=== PATIENT | female | born 1960 | race Caucasian/White ===

== ENCOUNTER 2022-05-28 18:24 | Inpatient (IN) | payer MEDICARE, OTHER ==
[~2022-05-28] VITALS: Ht 162.6 cm; Wt 54.9 kg
--- NOTE | 2022-05-28 18:36 | NUR ---
PT IS IN ROOM #3. DR ALFARO EVALUATED THE PT.
[2022-05-28] MEDS ORDERED: LORA-258 PO (18:47)
[2022-05-28] MEDS ORDERED: SUMA50TA PO (18:47)
[2022-05-28] MEDS ORDERED: DOXE50CA4 PO (18:47)
[2022-05-28] MEDS ORDERED: OLAN5TAB3 PO (18:47)
[2022-05-28] MEDS ORDERED: DIPH25CA83 PO (18:47)
[2022-05-28] MEDS ORDERED: MECL-225 PO (18:47)
[2022-05-28] MEDS ORDERED: LAMO150T2 PO (18:47)
[2022-05-28] MEDS ORDERED: BUSP15TA3 PO (18:47)
--- NOTE | 2022-05-28 18:50 | NUR ---
Received report from BHAVANI Harrison.
--- NOTE | 2022-05-28 19:45 | NUR ---
Called [facility] to give report. Told to call back in 15 MIN.
[2022-05-28 20:00] VITALS: BP 136/61
--- NOTE | 2022-05-28 20:10 | NUR ---
Report given to BHAVANI Calderón.
--- NOTE | 2022-05-28 20:50 | NUR ---
Pt. admitted to [facility] rm 140a, under care of Dr. De La Rosa/Dr. Yi Belongs List completed BHAVANI Calderón aware of patient's arrival to unit.
[2022-05-28] MEDS ORDERED: MAG HYDROX/AL HYDROX/SIMETH 30 ML LIQUID UDC PO PRN (21:15)
[2022-05-28] MEDS ORDERED: MAGNESIUM HYDROXIDE 30 ML LIQUID UDC PO PRN (21:15)
[2022-05-28] MEDS ORDERED: ACETAMINOPHEN 325 MG TABLET PO PRN (21:15)
[2022-05-28] MEDS: TEMAZEPAM 7.5 MG CAPSULE PO PRN (23:41)
--- NOTE | 2022-05-29 02:56 | NUR ---
Admission Notes: Received 61 y/o female patient @ 2315 hours, on a 5150 hold d/t being GD and a DTS. Pt was BIB ER staff via lindsay. Upon face to face assessment, pt was AOx1, confused, disorganized, disoriented, extremely anxious, easily irritable, argumentative, disheveled, labile with catatonic affect. Patient continued to scream as loud as she could "I need to have it quiet!" "It needs to be quiet!" "Are you telling me I can't ever have it quiet?" "Oh no, I can't take this!" "I won't be able to take this!" In-between each scream would be an over-exaggeration of a cry. Back and forth she went on being non-compliant, and with selective hearing, we/this staff managed to re-direct the patient to calm down and follow directions. Patient stated she still had thoughts of SI, but denied HI, and was contracted for safety with this nurse. Pt was given her advisement and patient's handbook at her bedside. Pt has an unsteady gait and is ambulatory x1 moderate to maximum assist. She is incontinent. Patient's history was that she was found [place] the ground, on a fire road[place]running trail by a runner passing by as she heard the patient's screams for help. Pt told the runner that she felt like she was having a stroke, but actually she overdosed. Per mother statement, she called the police that her daughter was missing, and that she believes her daughter attempted to commit suicide via swallowing a lot of Benadryl's. Pt has a history of failed suicide attempts, depression, and anxiety. Estrella's the psychiatrist and Jessica's the financial institution treasurer. Addendum: 05/29/22 at 0342 by RHONA GONZALEZ LVN Patient came onto U with noted slight ecchymosis onto her lower back/lumbar region. Upon palpation, pt claimed the area to be somewhat tender.
[2022-05-29 08:11] VITALS: BP 123/67
[2022-05-29] MEDS: LITHIUM CARBONATE 150 MG CAPSULE PO SCH ×2 (12:43→21:30)
[2022-05-29] MEDS: BENZTROPINE MESYLATE 0.5 MG TABLET PO SCH ×2 (12:43→16:25)
[2022-05-29] MEDS: risperiDONE-M 0.5 MG TAB.RAPDIS PO SCH ×2 (12:44→16:24)
--- NOTE | 2022-05-29 14:16 | NUR ---
Received patient alert and orient x 1 to her self confused and disoriented. able to ambulates with unsteady gait.patient is paranoia and delusional believe she is in her own room at her house. refused to attend in group activity ,compliant with all medication .with episode of saying " i want to kill my self" Dr. De La Rosa aware of patient express of suicidal ideation, will close monitoring for safety and SI precaution
[2022-05-29 15:29] VITALS: BP 95/50
[2022-05-29 19:58] VITALS: BP 96/52
[2022-05-29] MEDS ORDERED: SUMATRIPTAN SUCCINATE 50 MG TABLET PO PRN (20:15)
[2022-05-29] MEDS: TEMAZEPAM 7.5 MG CAPSULE PO PRN (21:30)
--- NOTE | 2022-05-30 07:29 | NUR ---
Patient is well appropriate, calm and cooperative. She is complaint with meds. No behavior issues observed.
[2022-05-30 07:59] VITALS: BP 101/52
[2022-05-30 08:17] LABS: HEMATOCRIT 35.9 % (31.2-41.9); MEAN CORPUSCULAR HEMOGLOBIN 30.7 uug (24.7-32.8); MEAN CORPUSCULAR VOLUME 91.4 fL (75.5-95.3); PLATELET COUNT (AUTO) 116 K/uL (179-408)
[2022-05-30 08:43] LABS: THYROID STIMULATING HORMONE 3.037 mIU/mL (0.358-3.740)
[2022-05-30 09:02] LABS: BILIRUBIN,TOTAL 0.4 mg/dL (0.2-1.0); CREATININE 0.7 mg/dL (0.6-1.3); MAGNESIUM 2.3 mg/dL (1.8-2.4); PHOSPHOROUS 3.9 mg/dL (2.5-4.9); POTASSIUM 3.8 mmol/L (3.5-5.1); TOTAL PROTEIN, SERUM 6.4 g/dL (6.4-8.2)
[2022-05-30] MEDS: risperiDONE-M 0.5 MG TAB.RAPDIS PO SCH ×3 (11:01→18:15)
[2022-05-30] MEDS: LITHIUM CARBONATE 150 MG CAPSULE PO SCH ×2 (11:02→18:15)
[2022-05-30] MEDS: BENZTROPINE MESYLATE 0.5 MG TABLET PO SCH ×3 (11:02→18:15)
--- NOTE | 2022-05-30 13:15 | NUR ---
LUIS Family Contact: SW spoke with pt's mother, Franchesca ([phone]) and pt in person regarding pt's discharge plan. Pt discussed that she is feeling a little better and she slept well. SW discussed pt's discharge options to a assisted facility upon discharge and pt and her mother stated they will talk about it and inform this fiction writer.
[2022-05-30 15:01] VITALS: BP 97/64
--- NOTE | 2022-05-30 16:22 | NUR ---
LUIS Initial Discharge Note: Pt currently resides in a moblile home with a roommate at [address] [facility], [facility] [address] . Pt is in close contact with her mother, Franchesca ([phone]). Pt does not have a DPOA. Pt is open to further discussing a temporary fdc facility. LUIS will continue to work with pt, her mother and MD to ensure a safe adn proper discharge plan.
--- NOTE | 2022-05-30 16:26 | NUR ---
Firearms Report: Developer Relations Manager completed and submitted a DOJ firearms report for 5150 a danger to herself and grave disability certifications. A copy of report has been placed in patient chart.
[2022-05-30 20:05] VITALS: BP 104/54
[2022-05-30] MEDS: ATORVASTATIN 10 MG TABLET PO SCH (20:34)
[2022-05-30] MEDS: TEMAZEPAM 7.5 MG CAPSULE PO PRN (21:50)
--- NOTE | 2022-05-31 06:23 | NUR ---
Received patient interacting with other peers, ambulating in the hallway, A&0x2. Able to make needs known. Med compliant. She is forgetful and confused at times. Snacks and fluid provided w/ good appetite. She is anxious, looking for her hearing aid, states that one of the patient are taking her things. Patient states that the hearing aids were in a green case and was brought by her mother earlier when she visits. Melt Superintendant didn't find the missing item. Patient unable to sleep. temazepam given. She is sleeping intermittently this shift. All safety strategies in placed.
[2022-05-31 08:00] VITALS: BP 105/56
[2022-05-31] MEDS: BENZTROPINE MESYLATE 0.5 MG TABLET PO SCH ×3 (08:28→17:05)
[2022-05-31] MEDS: LITHIUM CARBONATE 150 MG CAPSULE PO SCH ×2 (08:28→17:05)
[2022-05-31] MEDS: risperiDONE-M 0.5 MG TAB.RAPDIS PO SCH ×4 (08:28→20:47)
--- NOTE | 2022-05-31 13:34 | NUR ---
Patient had court hearing today, youth court judge gave 14 Day hold probable cause for DTS and GD.
--- NOTE | 2022-05-31 14:04 | NUR ---
SW Family Contact: SW spoke with pt's mother, Franchesca ([phone]) and pt in person regarding pt's discharge plan. Pt and mother are agreeable with a temporary facility upon discharge. Pt and Franchesca were very appreciative of SW's help. Pt stated she feels better and happy with the psychiatrists treatment.
--- NOTE | 2022-05-31 14:24 | NUR ---
Patient pacing in and out of her room, ambulating with steady gait, patient stated she needs to go to the bathroom, but is unable to pull her pants down to use the bathroom due to she does not know how, poor insight. Patient needs guidance on participating with self-care. Patient is medication compliance, follows directions. Patient is current free from pain or any discomforts, emotional support provided, fall and safety precautions implemented.
[2022-05-31 16:00] VITALS: BP 99/48
[2022-05-31] MEDS: ATORVASTATIN 10 MG TABLET PO SCH (20:45)
[2022-05-31] MEDS: TEMAZEPAM 7.5 MG CAPSULE PO PRN (20:45)
[2022-05-31 21:21] VITALS: BP 122/65
--- NOTE | 2022-06-01 07:15 | NUR ---
Patient is doing much better, she interact politely with staff, denied SI/AH/VH. She is compliant with meds; she slept all night. No S/S of respiratory distress observed. Will continue to monitor patient for safety.
[2022-06-01 07:39] VITALS: BP 103/56
[2022-06-01] MEDS: BENZTROPINE MESYLATE 0.5 MG TABLET PO SCH ×3 (08:29→16:31)
[2022-06-01] MEDS: risperiDONE-M 0.5 MG TAB.RAPDIS PO SCH ×4 (08:29→20:31)
[2022-06-01] MEDS: LITHIUM CARBONATE 150 MG CAPSULE PO SCH ×2 (08:29→16:32)
--- NOTE | 2022-06-01 10:52 | NUR ---
LUIS Family Contact: LUIS spoke with pt's mother, Franchesca ([phone]) regarding visitation protocols. LUIS educated Franchesca the importance of checking in her belongings that she brings for the pt with nursing first. LUIS stated it is for patient safety that any item brought for the patient is first cleared by the nurse prior to entering the pt's room. LUIS stated that failure to comply with the hospital protocols will result in no visitation per administration. Franchesca stated she understands and she apologized for the incident yesterday.
--- NOTE | 2022-06-01 11:58 | NUR ---
Discharge Update: Per luiza cruz, pt is accepted to [address] [address] ([phone]) upon discharge. Pt is aware and agreeable with the discharge plan.
--- NOTE | 2022-06-01 14:53 | NUR ---
Patient with flat affect, withdraw, isolative, soft spoke, denies SI, HI, VH,AH, medication compliant, up in day room during visits from her mother, encouraging patient to participate with groups and daily activities. Patient is currently free from pain or any discomfort. Emotional support provided. Fall and safety precautions implemented. Patient contracted for safety.
[2022-06-01 15:42] VITALS: BP 122/67
[2022-06-01] MEDS: ATORVASTATIN 10 MG TABLET PO SCH (20:31)
[2022-06-01 20:54] VITALS: BP 110/62
--- NOTE | 2022-06-02 06:53 | NUR ---
Received pt in room pacing anxious with flat affect, withdraw, isolative, Pt denies SI, HI, verbal contracted with this screen writer for safety.Pt is medication compliant. Emotional support provided.Pt had a snack and watched TV before going to sleep. Pt slept for 6hrs and 30min No distress noted. Continue to monitor for safety, continue with treatment plan.
[2022-06-02 07:54] VITALS: BP 110/60
[2022-06-02] MEDS: LITHIUM CARBONATE 150 MG CAPSULE PO SCH ×2 (08:44→16:59)
[2022-06-02] MEDS: BENZTROPINE MESYLATE 0.5 MG TABLET PO SCH ×3 (08:44→16:59)
[2022-06-02] MEDS: risperiDONE-M 0.5 MG TAB.RAPDIS PO SCH ×4 (08:44→21:03)
[2022-06-02] MEDS: PROTEIN SUPPLEMENT (PROSTAT) 30 ML LIQUID PO SCH (10:15)
--- NOTE | 2022-06-02 15:27 | NUR ---
Received patient alert and orient x 1 to her self confused and disoriented. able to ambulates with unsteady gait.patient is paranoia and delusional believe she is in her own room at her house. refused to attend in group activity ,compliant with all medication,denies any SI .remains isolative withdrawn will continue close monitoring.
[2022-06-02 18:12] VITALS: BP 96/56
[2022-06-02] MEDS: LORAZEPAM 1 MG TABLET PO PRN (21:03)
[2022-06-02] MEDS: ATORVASTATIN 10 MG TABLET PO SCH (21:03)
[2022-06-02 21:08] VITALS: BP 122/63
[2022-06-03 08:18] VITALS: BP 99/60
[2022-06-03] MEDS: LITHIUM CARBONATE 150 MG CAPSULE PO SCH ×2 (08:43→17:19)
[2022-06-03] MEDS: BENZTROPINE MESYLATE 0.5 MG TABLET PO SCH ×3 (08:43→17:19)
[2022-06-03] MEDS: risperiDONE-M 0.5 MG TAB.RAPDIS PO SCH ×4 (08:43→20:32)
[2022-06-03] MEDS: PROTEIN SUPPLEMENT (PROSTAT) 30 ML LIQUID PO SCH (08:44)
[2022-06-03 16:29] VITALS: BP 112/67
[2022-06-03] MEDS ORDERED: MISCELLANEOUS MED EACHEYE SCH (17:00)
[2022-06-03] MEDS: DORZOLAMIDE 2% OPHT DROP 10 ML BOTTLE OP SCH (17:20)
[2022-06-03] MEDS: TIMOLOL MALEATE 0.5% OPHT DROP 5 ML BOTTLE OP SCH (17:26)
--- NOTE | 2022-06-03 18:08 | NUR ---
Patient is very dependent, always requiring help from staff and especially her mother when she is visiting, mother is very protective and needs to be reminded of unit rules, compliant with medications, isolative, depressed. Patient is A/O X 3 to person, place. Booth Operator was informed that patient had Glaucoma drops from home to be reconciled, orders were placed. Emotional support provided. Fall and safety precautions implemented.
[2022-06-03 20:23] VITALS: BP 101/56
[2022-06-03] MEDS: LORAZEPAM 1 MG TABLET PO PRN (20:31)
[2022-06-03] MEDS: ATORVASTATIN 10 MG TABLET PO SCH (20:31)
--- NOTE | 2022-06-04 06:58 | NUR ---
Patient remains withdrawn and isolated for entire shift. Compliant with medications, she requires that her medications are taken one at a time. Anxious but compliant. Patient safety strategies in place.
[2022-06-04 07:59] VITALS: BP 124/77
[2022-06-04] MEDS: PROTEIN SUPPLEMENT (PROSTAT) 30 ML LIQUID PO SCH (08:00)
[2022-06-04] MEDS: BENZTROPINE MESYLATE 0.5 MG TABLET PO SCH ×2 (09:35→12:05)
[2022-06-04] MEDS: LITHIUM CARBONATE 150 MG CAPSULE PO SCH ×2 (09:35→17:23)
[2022-06-04] MEDS: risperiDONE-M 0.5 MG TAB.RAPDIS PO SCH ×4 (09:36→20:12)
[2022-06-04] MEDS: TIMOLOL MALEATE 0.5% OPHT DROP 5 ML BOTTLE OP SCH ×2 (09:38→17:25)
[2022-06-04] MEDS: DORZOLAMIDE 2% OPHT DROP 10 ML BOTTLE OP SCH ×2 (09:38→17:25)
--- NOTE | 2022-06-04 12:27 | NUR ---
RECEIVED REPORT FROM AM NURSE RHONA PT IS ALERT AND ORIENTED X 2 PT DENIES SI BUT IS COMPLIANT WITH MEDICATION AND NO SIGNS OF ADVERSE REACTION FROM MEDICATIONS. PT IS ON A 14 DAY HOLD WHICH EXPIRES 06/12/22. PT IS AMBULATORY. PT IS SELF CARE AND NOT A FEEDER.
[2022-06-04] MEDS ORDERED: BENZTROPINE MESYLATE 0.5 MG TABLET PO SCH (13:00)
[2022-06-04 16:30] VITALS: BP 98/51
[2022-06-04] MEDS: BENZTROPINE MESYLATE 1 MG TABLET PO SCH (17:23)
[2022-06-04 19:50] VITALS: BP 111/60
[2022-06-04] MEDS: ATORVASTATIN 10 MG TABLET PO SCH (20:12)
--- NOTE | 2022-06-04 20:38 | NUR ---
GPS: Less anxious at this time. Re-assured prn. Med.compliant. Poor insight to present situation. Safe environment provided.
[2022-06-04] MEDS: TEMAZEPAM 7.5 MG CAPSULE PO PRN (23:27)
[2022-06-05 07:46] LABS: HEMATOCRIT 33.1 % (31.2-41.9); MEAN CORPUSCULAR HEMOGLOBIN 30.9 uug (24.7-32.8); MEAN CORPUSCULAR VOLUME 91.2 fL (75.5-95.3); PLATELET COUNT (AUTO) 118 K/uL (179-408)
[2022-06-05 08:00] VITALS: BP 112/52
[2022-06-05 08:02] LABS: BILIRUBIN,TOTAL 0.4 mg/dL (0.2-1.0); CREATININE 0.6 mg/dL (0.6-1.3); POTASSIUM 3.8 mmol/L (3.5-5.1); TOTAL PROTEIN, SERUM 5.7 g/dL (6.4-8.2)
[2022-06-05] MEDS: risperiDONE-M 0.5 MG TAB.RAPDIS PO SCH ×4 (08:37→20:14)
[2022-06-05] MEDS: BENZTROPINE MESYLATE 1 MG TABLET PO SCH ×3 (08:38→16:36)
[2022-06-05] MEDS: LITHIUM CARBONATE 150 MG CAPSULE PO SCH ×2 (08:38→16:35)
[2022-06-05] MEDS: TIMOLOL MALEATE 0.5% OPHT DROP 5 ML BOTTLE OP SCH ×2 (08:39→16:46)
[2022-06-05] MEDS: PROTEIN SUPPLEMENT (PROSTAT) 30 ML LIQUID PO SCH (08:39)
[2022-06-05] MEDS: DORZOLAMIDE 2% OPHT DROP 10 ML BOTTLE OP SCH ×2 (08:41→16:37)
--- NOTE | 2022-06-05 14:34 | NUR ---
Patient is cooperative with nursing care, follows directions, forgetful, confused at times, requires minimal assistance with ADL, isolative most of the time. Patient is A/O X 2 to person, place. Patient's mother comes very often, and seems very confused with belongings and bags, recently following the rules in the unit. Patient ambulates independently. Patient is encourage to vent feelings and emotions. Fall and safety precautions implemented.
[2022-06-05 16:29] VITALS: BP 93/52
[2022-06-05 19:58] VITALS: BP 101/53
[2022-06-05] MEDS: ATORVASTATIN 10 MG TABLET PO SCH (20:14)
[2022-06-05] MEDS: TEMAZEPAM 7.5 MG CAPSULE PO PRN (21:44)
--- NOTE | 2022-06-06 06:52 | NUR ---
GPS: Pt.is less anxious and denies feeling depressed when asked. Re-assured and re-directed prn. Med.compliant and allows care from staff. Slept 7.30 last night. Safety emphasized. Will continue to monitor.
[2022-06-06 08:00] VITALS: BP 104/53
[2022-06-06] MEDS: LITHIUM CARBONATE 150 MG CAPSULE PO SCH ×2 (08:21→16:55)
[2022-06-06] MEDS: risperiDONE-M 0.5 MG TAB.RAPDIS PO SCH ×4 (08:21→20:23)
[2022-06-06] MEDS: TIMOLOL MALEATE 0.5% OPHT DROP 5 ML BOTTLE OP SCH ×2 (08:22→16:54)
[2022-06-06] MEDS: DORZOLAMIDE 2% OPHT DROP 10 ML BOTTLE OP SCH ×2 (08:22→16:55)
[2022-06-06] MEDS: PROTEIN SUPPLEMENT (PROSTAT) 30 ML LIQUID PO SCH (08:22)
[2022-06-06] MEDS: BENZTROPINE MESYLATE 1 MG TABLET PO SCH (08:25)
--- NOTE | 2022-06-06 10:29 | NUR ---
Patient is walking in and out of her room patient focus on medications she is taking, patient is more verbal, "I just need the new medication that I started 72 hour ago, I am forgetful and I think is the medication that is making me forge'. Redirected patient , reassured patient that she is doing better, notice patient thoughts process is more clear, patient takes all medications as ordered, Patient is currently free form pain or discomforts, Emotional support provided, Fall and safety precautions implemented.
[2022-06-06] MEDS: LORAZEPAM 1 MG TABLET PO PRN ×2 (11:15→20:23)
--- NOTE | 2022-06-06 11:18 | NUR ---
Ativan 1 mg is given at 11:15 for anxiety, will be monitored for effectiveness. Patient is paranoid and states "You guys blocked my primary Psychiatrist number, and now I can't have any help. I need Ativan because it's giving me anxiety".
--- NOTE | 2022-06-06 12:18 | NUR ---
SW Family Contact: SW spoke with pt's mother Franchesca ([phone]) regarding pt's acceptance to [facility] located at [address] [place] [address] ([phone]). Franchesca was grateful and appreciative of this SW's help. Pt is as also aware and agreeable with her discharge plan.
[2022-06-06 16:07] VITALS: BP 101/58
[2022-06-06 20:03] VITALS: BP 111/64
[2022-06-06] MEDS: AMANTADINE HCL 100 MG CAPSULE PO SCH (20:23)
[2022-06-06] MEDS: ATORVASTATIN 10 MG TABLET PO SCH (20:23)
--- NOTE | 2022-06-07 00:24 | NUR ---
Received patient in [facility] delusionally paranoid. Pt believed that the hospital staff blocked her mother's and psychiatrist's telephone number. After spending roughly 20 minutes providing repeated assurance and education, pt continued to believe in her delusional thoughts. Patient eventually stated she is "starting to feel suicidal" because her mother didn't visit her today, nor did she call her. This nurse added Ativan to her 2100 hour medication regimen to help calm her down. Medications were effective. Will continue to monitor.
[2022-06-07 08:11] VITALS: BP 92/51
--- NOTE | 2022-06-07 08:24 | NUR ---
Clinical SW Note: Pt appears paranoid this morning stating she can no longer contact her mother because the FBI took over her mother's cellphone and that her mother did not visit yesterday. SW reminded pt that her mother was able to visit and this SW, the pt and her mother Franchesca ([phone]) spoke yesterday about her discharge plan in person. Pt appeared relieved and stated she is aware her memory is back and forth and she appeared more relaxed knowing she and her mother are safe.
[2022-06-07] MEDS: LITHIUM CARBONATE 150 MG CAPSULE PO SCH ×2 (08:37→17:02)
[2022-06-07] MEDS: AMANTADINE HCL 100 MG CAPSULE PO SCH ×2 (08:37→20:27)
[2022-06-07] MEDS: risperiDONE-M 0.5 MG TAB.RAPDIS PO SCH ×4 (08:38→20:27)
[2022-06-07] MEDS: DORZOLAMIDE 2% OPHT DROP 10 ML BOTTLE OP SCH ×2 (08:38→17:03)
[2022-06-07] MEDS: PROTEIN SUPPLEMENT (PROSTAT) 30 ML LIQUID PO SCH (08:38)
[2022-06-07] MEDS: TIMOLOL MALEATE 0.5% OPHT DROP 5 ML BOTTLE OP SCH ×2 (08:51→17:03)
--- NOTE | 2022-06-07 15:30 | NUR ---
Patient is being paranoid about telephone being blocked by us and for her not being able to talk to her primary Psychiatrist and her Mom, even though Mom was contacted right away in the same phone. Patient is unable to provide self care, requires redirection and prompts. Patient is confused and anxious at times. Patient is compliant with medications, and cooperative with nursing care. Patient is A/O X 2 to person, place. Reality orientation provided. Fall and safety precautions implemented.
[2022-06-07 15:44] VITALS: BP 88/41
[2022-06-07 19:01] VITALS: BP 89/51
[2022-06-07] MEDS: ATORVASTATIN 10 MG TABLET PO SCH (20:27)
[2022-06-07 21:11] VITALS: BP 91/50
--- NOTE | 2022-06-07 21:22 | NUR ---
GPS: Pt.was anxious during start of shift. Re-assured prn. Has periods of confusion and is forgetful at times. Denies AH/VH and SI at this time. Safe environment provided. Needs attended. Now resting comfortably in bed with her eyes closed. Will continue to monitor. Med.compliant.
[2022-06-07 21:45] VITALS: BP 92/57
[2022-06-08] MEDS: TEMAZEPAM 7.5 MG CAPSULE PO PRN (00:11)
[2022-06-08 07:09] VITALS: BP 95/54
[2022-06-08] MEDS: AMANTADINE HCL 100 MG CAPSULE PO SCH ×2 (08:33→20:59)
[2022-06-08] MEDS: risperiDONE-M 0.5 MG TAB.RAPDIS PO SCH (08:33)
[2022-06-08] MEDS: LITHIUM CARBONATE 150 MG CAPSULE PO SCH ×2 (08:33→17:13)
[2022-06-08] MEDS: TIMOLOL MALEATE 0.5% OPHT DROP 5 ML BOTTLE OP SCH ×2 (08:34→17:14)
[2022-06-08] MEDS: PROTEIN SUPPLEMENT (PROSTAT) 30 ML LIQUID PO SCH (08:34)
[2022-06-08] MEDS: DORZOLAMIDE 2% OPHT DROP 10 ML BOTTLE OP SCH ×2 (08:34→17:14)
--- NOTE | 2022-06-08 15:08 | NUR ---
Patient is confused, forgetful, needy, still paranoid about not being able to make calls, compliant with medications, following directions. Patient is encourage to vent feelings and emotions. Fall and safety precautions implemented.
[2022-06-08 16:30] VITALS: BP 92/53
[2022-06-08 20:24] VITALS: BP 90/47
[2022-06-08] MEDS: ATORVASTATIN 10 MG TABLET PO SCH (20:59)
[2022-06-08] MEDS ORDERED: OLANZAPINE 5 MG TABLET PO SCH (21:00)
[2022-06-08] MEDS: LORAZEPAM 1 MG TABLET PO PRN (23:17)
--- NOTE | 2022-06-09 04:49 | NUR ---
Received Pt in room pacing.Pt is anxious,Restless and depressed. Pt ca not formulate a bailable plan for care. Pt is compliant with medication and nursing care.Pt denies SI/HI. Verbal contracted with this writer producer for safety. Pt ask for anxiety medication. Pt stated "I feel anxious and scared for my current situation, the reason I am here." "I was being stalked and hacked by people from the internet". " I had to change all my devices But that was not good enough, Do I need to get rid of all my devices and hide?". Reassurance provided . Pt took Ativan and went to sleep.Pt is calmly sleeping. No distress noted. Continue to monitor for safety .Continue to with treatment plan.
[2022-06-09 08:08] VITALS: BP 106/64
[2022-06-09] MEDS: AMANTADINE HCL 100 MG CAPSULE PO SCH ×2 (08:22→20:23)
[2022-06-09] MEDS: LITHIUM CARBONATE 150 MG CAPSULE PO SCH ×2 (08:22→16:33)
[2022-06-09] MEDS: TIMOLOL MALEATE 0.5% OPHT DROP 5 ML BOTTLE OP SCH ×2 (08:23→16:32)
[2022-06-09] MEDS: DORZOLAMIDE 2% OPHT DROP 10 ML BOTTLE OP SCH ×2 (08:23→16:32)
[2022-06-09] MEDS: PROTEIN SUPPLEMENT (PROSTAT) 30 ML LIQUID PO SCH (08:24)
--- NOTE | 2022-06-09 08:30 | NUR ---
Alert, oriented x 3, calm, compliant with care and taking of medication. Independent with meal and ADL. Denies SI.
--- NOTE | 2022-06-09 13:40 | NUR ---
Eating fairly. Resting after lunch.
--- NOTE | 2022-06-09 15:30 | NUR ---
With mother as visitor. screening of belongings done, stayed at the activity room
[2022-06-09 16:00] VITALS: BP 107/61
[2022-06-09 20:05] VITALS: BP 95/54
[2022-06-09] MEDS: ATORVASTATIN 10 MG TABLET PO SCH (20:22)
[2022-06-09] MEDS: OLANZAPINE 5 MG TABLET PO SCH (20:22)
--- NOTE | 2022-06-10 05:57 | NUR ---
Received Pt in room awake, withdrawn, depressed. Pt is still paranoid about being cyber hacked. Pt ca not formulate a bailable plan for care. Pt is compliant with medication and nursing care. Pt denies SI/HI. Verbal contracted with this chart writer for safety. Pt ask for anxiety medication. Reassurance provided. Pt is calmly sleeping. No distress noted. Continue to monitor for safety .Continue to with treatment plan.
[2022-06-10 08:10] VITALS: BP 94/46
[2022-06-10] MEDS: LITHIUM CARBONATE 150 MG CAPSULE PO SCH ×2 (08:15→17:17)
[2022-06-10] MEDS: DORZOLAMIDE 2% OPHT DROP 10 ML BOTTLE OP SCH ×2 (08:15→17:17)
[2022-06-10] MEDS: TIMOLOL MALEATE 0.5% OPHT DROP 5 ML BOTTLE OP SCH ×2 (08:15→17:17)
[2022-06-10] MEDS: AMANTADINE HCL 100 MG CAPSULE PO SCH ×2 (08:15→20:41)
[2022-06-10] MEDS: PROTEIN SUPPLEMENT (PROSTAT) 30 ML LIQUID PO SCH (08:16)
--- NOTE | 2022-06-10 14:37 | NUR ---
Patient is very needy, confused, preoccupied, anxious, isolated, paranoid about being cyber hacked. Patient is A/O X 2 to person, place. Patient ambulates independently. Reality orientation provided. Fall and safety precautions implemented.
[2022-06-10 16:13] VITALS: BP 108/60
[2022-06-10 19:57] VITALS: BP 112/52
[2022-06-10] MEDS: LORAZEPAM 1 MG TABLET PO PRN (20:41)
[2022-06-10] MEDS: OLANZAPINE 5 MG TABLET PO SCH (20:41)
[2022-06-10] MEDS: ATORVASTATIN 10 MG TABLET PO SCH (20:41)
--- NOTE | 2022-06-11 00:16 | NUR ---
Patient requested Ativan to help calm her down because she stated she is feeling suicidal. Although Ativan is effective for this purpose, I believe she is becoming dependant on the medication as soon as she becomes even slightly a bit anxious. Safety measures taken. Will continue to monitor.
[2022-06-11] MEDS: PROTEIN SUPPLEMENT (PROSTAT) 30 ML LIQUID PO SCH (08:00)
[2022-06-11 08:05] LABS: HEMATOCRIT 32.5 % (31.2-41.9); MEAN CORPUSCULAR HEMOGLOBIN 30.6 uug (24.7-32.8); MEAN CORPUSCULAR VOLUME 92.3 fL (75.5-95.3); PLATELET COUNT (AUTO) 124 K/uL (179-408)
[2022-06-11 08:16] VITALS: BP 109/67
[2022-06-11 08:21] LABS: BILIRUBIN,TOTAL 0.4 mg/dL (0.2-1.0); CREATININE 0.8 mg/dL (0.6-1.3); POTASSIUM 3.5 mmol/L (3.5-5.1); TOTAL PROTEIN, SERUM 5.8 g/dL (6.4-8.2)
[2022-06-11] MEDS: LITHIUM CARBONATE 150 MG CAPSULE PO SCH ×2 (09:00→17:01)
[2022-06-11] MEDS: TIMOLOL MALEATE 0.5% OPHT DROP 5 ML BOTTLE OP SCH ×2 (09:00→17:00)
[2022-06-11] MEDS: DORZOLAMIDE 2% OPHT DROP 10 ML BOTTLE OP SCH ×2 (09:00→17:00)
[2022-06-11] MEDS: AMANTADINE HCL 100 MG CAPSULE PO SCH ×2 (09:00→20:35)
--- NOTE | 2022-06-11 13:38 | NUR ---
RECEIVED CALLED FROM ANDREY PRESIDENT PRACTICING UROLOGIST HAVE PT TRANSFER TO TELE UNIT DX VASCULITIS, ID CONSULT, AND MRI WITHOUT CONTRAST. ORDERS DONE WAITING ON BED FOR TELE. ALSO WANTS PT REAL BEAR TRANSFER TO MEDICAL SURGICAL FLOOR AND D/C TRANSFER BACK TO [facility].
--- NOTE | 2022-06-11 13:55 | NUR ---
REPORT GIVEN TO AM HOMER NURSE ON TELE UNIT FOR PATIENT TRANSFER
--- NOTE | 2022-06-11 15:31 | NUR ---
LUIS Discharge Screener: LUIS completed a discharge screener.
--- NOTE | 2022-06-11 15:42 | NUR ---
LUIS TRANSFER NOTE: Pt is accepted to [facility] upon discharge located at [address] [place] [address] ([phone]) confirmed by Breanne cruz [phone]. LUIS spoke with pt's mother, Franchesca ([phone]) who is aware and agreeable with the discharge plan. Pt does not have a DPOA or conservator.
[2022-06-11 16:45] VITALS: BP 110/69
--- NOTE | 2022-06-11 18:59 | NUR ---
SHIFT NOTE: RECEIVED REPORT FROM HS NURSE RHONA PT ALERT AND ORIENTED X4 ENTERED PATIENT ROOM LYING ON BED. DR. RETANA ORDERED MRI WITHOUT CONTRAST. AFTERWARDS PT BROUGHT BACK TO MHU. NO SIGNS OF DISTRESS NOTED. RADHA BALDERAS NP ORDERED PATIENT TO BE TAKEN TO UPSTAIRS TO TELEMETRY. PT MEDICATION GIVEN ORDERED NO SIGNS OF ADVERSE REACTION NOTED. WILL CONTINUE TO MONITOR FOR SAFETY AND FALLS ENDORSE TO NIGHT NURSE.
[2022-06-11] MEDS: OLANZAPINE 5 MG TABLET PO SCH (20:35)
[2022-06-11] MEDS: LORAZEPAM 1 MG TABLET PO PRN (20:35)
[2022-06-11] MEDS: ATORVASTATIN 10 MG TABLET PO SCH (20:35)
[2022-06-11] MEDS ORDERED: GADOTERATE MEGLUMINE 5 MMOL/10 ML VIAL IV ONE (20:39)
== END 2022-06-11 20:40 | DRG 885 ==
LOC: ER 18:31 → GPS 20:35
PROVIDERS: ADMIT Psychiatry & Neurology Psychosomatic Medicine; ATTEND Internal Medicine
DX: F25.0 Schizoaffective disorder, bipolar type (principal); R45.851 Suicidal ideations; E78.5 Hyperlipidemia, unspecified; F32.A Depression, unspecified; F43.10 Post-traumatic stress disorder, unspecified; F60.9 Personality disorder, unspecified; R62.7 Adult failure to thrive; J45.909 Unspecified asthma, uncomplicated; Z87.19 Personal history of other diseases of the digestive system; I34.1 Nonrheumatic mitral (valve) prolapse; K58.9 Irritable bowel syndrome, unspecified; F41.9 Anxiety disorder, unspecified; Z68.20 Body mass index [BMI] 20.0-20.9, adult; H40.9 Unspecified glaucoma; I77.6 Arteritis, unspecified; Z85.820 Personal history of malignant melanoma of skin
CPT/HCPCS: 36415; 70030-TC; 70450; 70551; 82747; 83735; 84100; 84443; 85014; 85025; A4663; A9575

== ENCOUNTER 2022-06-11 20:41 | Inpatient (IN) | payer MEDICARE, OTHER ==
[~2022-06-11] VITALS: Ht 162.6 cm; Wt 54.4 kg
--- NOTE | 2022-06-11 15:43 | NUR ---
LUIS TRANSFER NOTE: Pt is accepted to [facility] upon discharge located at [address] [place] [address] ([phone]) confirmed by Breanne cruz [phone]. LUIS spoke with pt's mother, Franchesca ([phone]) who is aware and agreeable with the discharge plan. Pt does not have a DPOA or conservator.
[~2022-06-11 20:41] MED LIST: DIPH25CA83 PO; MECL-225 PO; SUMA50TA PO
[2022-06-11 21:00] VITALS: BP 112/69
--- NOTE | 2022-06-11 21:00 | NUR ---
Admitted patient from [facility]HU with dx of Possible vasculitis by Simon BARCENAS. Patient alert oriented, continent of bladder, ambulatory, room air, no complain of pain, patient calm and cooperative with care, Patient has 1;1 sitter due dx of SI. body check done, inventory all belongings, provide safe environment, call light and phone took out of the room. cont to monitor.
[2022-06-11] MEDS ORDERED: ACETAMINOPHEN 325 MG TABLET PO PRN (22:30)
[2022-06-11] MEDS ORDERED: ONDANSETRON 4 MG/2 ML VIAL IV PRN (22:30)
[2022-06-11] MEDS ORDERED: MAGNESIUM HYDROXIDE 30 ML LIQUID UDC PO PRN (22:30)
[2022-06-11] MEDS ORDERED: REMEDY ESSENTIAL ZINC PASTE 113 GM TP PRN (22:30)
[2022-06-11] MEDS: ENOXAPARIN SODIUM 40 MG/0.4 ML DISP.SYRIN SQ SCH (23:27)
[2022-06-12] VITALS: BP 101/60
[2022-06-12 04:00] VITALS: BP 102/59
[2022-06-12] MEDS: PANTOPRAZOLE SODIUM 40 MG TABLET.DR PO SCH (06:14)
--- NOTE | 2022-06-12 06:48 | NUR ---
Patient alert oriented, no sob no chest pain, tele monitor sinus. Patient has no complain of pain, left hand 22gauge IV helplock done. Patient continue on 1;1 sitter due SI diagnosis. cont to monitor.
[2022-06-12 07:45] VITALS: BP 99/56
[2022-06-12 08:22] LABS: HEMATOCRIT 30.1 % (31.2-41.9); MEAN CORPUSCULAR HEMOGLOBIN 31.1 uug (24.7-32.8); MEAN CORPUSCULAR VOLUME 91.2 fL (75.5-95.3); PLATELET COUNT (AUTO) 113 K/uL (179-408)
[2022-06-12 08:53] LABS: CREATININE 0.7 mg/dL (0.6-1.3); MAGNESIUM 2.1 mg/dL (1.8-2.4); PHOSPHOROUS 4.2 mg/dL (2.5-4.9); POTASSIUM 3.4 mmol/L (3.5-5.1)
--- NOTE | 2022-06-12 09:32 | NUR ---
POTASSIUM LEVEL IS 3.4 WITH REPLACEMENT ORDER AND NOTED.
[2022-06-12] MEDS ORDERED: POTASSIUM CHLORIDE 20 MEQ TAB.PRT.SR PO ONE (10:00)
--- NOTE | 2022-06-12 10:18 | NUR ---
POTASSIUM LEVEL IS 3.4 MEDICATED ORDERED WILL OBSERVE.
[2022-06-12] MEDS ORDERED: POTASSIUM BICARBONATE/CIT AC 25 MEQ TABLET.EFF PO ONE (10:30)
[2022-06-12 11:00] VITALS: BP 116/64
--- NOTE | 2022-06-12 11:30 | NUR ---
INSERTED A NEW LINE GAUGE 20 TO HER RIGHT ANTECUBITAL IN PREP FOR MRI WITH CONTRAST.
--- NOTE | 2022-06-12 11:59 | NUR ---
PATIENT PICKED [facility] TO [facility] ORDERED IN SATISFACTORY CONDITION.
--- NOTE | 2022-06-12 12:34 | NUR ---
Pt transported to [facility] for mri. Will do tmrw in AM.
--- NOTE | 2022-06-12 13:47 | NUR ---
PATIENT RETURNED FROM THE MRI ORDERED AWAITING FOR RESULTS.
--- NOTE | 2022-06-12 14:07 | NUR ---
CALLED DR DANIEL RE NEED TO RENEW HOLD IT WILL TODAY AND SHE STATED TO DISCONTINUE TO HOLD NOW.
[2022-06-12 16:00] VITALS: BP 113/60
--- NOTE | 2022-06-12 17:30 | NUR ---
COVED TEST DONE AND SENT TO THE LAB ORDERED DR PHOENIX HERE WITH NO NEW ORDERS AT THIS TIME
--- NOTE | 2022-06-12 17:50 | NUR ---
C/O HEADACHE MEDICATED WITH TYLENOL ORDERED.
[2022-06-12 20:00] VITALS: BP 111/74
--- NOTE | 2022-06-12 20:30 | NUR ---
Received patient in bed, with family at bedside, no sob no chest pain, no complain of pain, sinus rhythm on tele. Patient calm, cooperative with medication and care, assisted with toileting. cont to monitor.
[2022-06-12] MEDS: LORAZEPAM 0.5 MG TABLET PO PRN (21:07)
[2022-06-12] MEDS: ENOXAPARIN SODIUM 40 MG/0.4 ML DISP.SYRIN SQ SCH (21:08)
[2022-06-13 04:00] VITALS: BP 101/58
--- NOTE | 2022-06-13 04:13 | NUR ---
Patient has episode of anxiety manifested by restlessness, tries to call a friend on the hospital phone, but friend phone is not taking phone calls at this time, explained it to the patient and able to follow or understand. Patient request Ativan meds for anxiety with effective results, request sleeping meds also for insomnia, sleep well, no complain of pain at this time, cont to monitor.
[2022-06-13 06:28] LABS: CREATININE 0.7 mg/dL (0.6-1.3); POTASSIUM 3.7 mmol/L (3.5-5.1)
[2022-06-13] MEDS: PANTOPRAZOLE SODIUM 40 MG TABLET.DR PO SCH (07:02)
[2022-06-13] MEDS: LORAZEPAM 0.5 MG TABLET PO PRN (08:56)
--- NOTE | 2022-06-13 09:00 | NUR ---
AWAKE ALERT AND VERBALLY RESPONSIVE DENIES DISCOMFORTS BUT STATED WANTS HER ATIVAN TO HELP HER RELAX GIVEN ORDERED.ON ROOM AIR WITH NO SOB CALL LIGHTS AND PERSONAL BELONGINGS WITHIN EASY REACH DENIES SUICIDAL IDEATION OR HI WILL CONTINUE TO OBSERVE.
--- NOTE | 2022-06-13 10:45 | NUR ---
DR DANIEL HERE AND SEEN PATIENT WITH NEW ORDERS AND NOTED.
--- NOTE | 2022-06-13 11:23 | NUR ---
LUMBAR PUNCTURE DONE AT THE BEDSIDE BY DR NEMO BRADY AND SENT TO THE LAB ORDERED
--- NOTE | 2022-06-13 11:25 | NUR ---
PATIENT TOLERATED PROCEDURE WELL INSTRUCTED TO LAY FLAT FOR ONE HOUR PER DR NEMO BRADY AND SHE EXPRESSED UNDERSTANDING.
[2022-06-13 11:53] VITALS: BP 108/65
[2022-06-13] MEDS: LITHIUM CARBONATE 300 MG CAPSULE PO SCH ×2 (12:21→21:45)
[2022-06-13 13:14] VITALS: BP_SYST 102; BP_SYST 112; BP_SYST 136; BP_DIAS 51; BP_DIAS 55; BP_DIAS 63
--- NOTE | 2022-06-13 14:00 | NUR ---
DR VALENTE HERE WITH NO NEW ORDERS AT THIS TIME.
[2022-06-13 16:04] VITALS: BP 125/70
[2022-06-13 17:06] LABS: CSF GLUCOSE 67 mg/dL (40-70); CSF PROTEIN 13 mg/dL (15-45)
--- NOTE | 2022-06-13 18:00 | NUR ---
PATIENT DENIES DISCOMFORTS EATING DINNER AT THIS TIME WILL OBSERVE.
--- NOTE | 2022-06-13 19:35 | NUR ---
Received patient in bed alert oriented, no sob no chest pain, sinus rhythm on tele monitor. Patient has no complain of pain at this time, calm and cooperative with care and medication. Patient busy with the phone, talking to a friend. Patient request a sleeping pill tonight, will medicate as order, cont to monitor.
[2022-06-13 20:00] VITALS: BP 103/54
[2022-06-13] MEDS ORDERED: OLANZAPINE 5 MG TABLET PO SCH (21:00)
[2022-06-13] MEDS: ENOXAPARIN SODIUM 40 MG/0.4 ML DISP.SYRIN SQ SCH (21:59)
--- NOTE | 2022-06-13 22:00 | NUR ---
Notify Elma BARCENAS platelet 113, and patient on lovenox 40mg, PHYSIOLOGIST to give unless there is a sign of bleeding, no bleeding noted, at this time,
[2022-06-13] MEDS: ZOLPIDEM 5 MG TABLET PO PRN ×2 (22:38)
[2022-06-14] VITALS: BP 110/61
[2022-06-14] MEDS ORDERED: DORZOLAMIDE/TIMOLOL OPHT DROP 10 ML BOTTLE EACHEYE SCH
--- NOTE | 2022-06-14 | NUR ---
cosopt eye gtts not given, not available.
--- NOTE | 2022-06-14 03:50 | NUR ---
Patient asleep but arousable, assisted with toileting, no sob no chest pain. Patient calm and cooperative with meds and care, sleep well, sleeping meds effective, no anxiety noted at this time, call light within reach. Patient request cosopt eye gtts for glucoma, QA ANALYST okeyed the order.
[2022-06-14 04:00] VITALS: BP 112/57
[2022-06-14] MEDS: PANTOPRAZOLE SODIUM 40 MG TABLET.DR PO SCH (05:11)
[2022-06-14 06:58] LABS: HEMATOCRIT 33.5 % (31.2-41.9); MEAN CORPUSCULAR VOLUME 92.6 fL (75.5-95.3); PLATELET COUNT (AUTO) 119 K/uL (179-408)
--- NOTE | 2022-06-14 07:35 | NUR ---
AWAKE ALERT AND ORIENTED DENIES PAIN OR DISCOMFORTS AT THIS TIME ON ROOM AIR WITH NO SHORTNESS OF BREATH DENIES SI OR HI CALL LIGHTS AND PERSONAL BELONGINGS ARE WITHIN EASY REACH AT THIS TIME WILL CONTINUE TO OBSERVE.
[2022-06-14 08:36] LABS: CREATININE 0.7 mg/dL (0.6-1.3); MAGNESIUM 2.1 mg/dL (1.8-2.4); PHOSPHOROUS 4.1 mg/dL (2.5-4.9); POTASSIUM 3.8 mmol/L (3.5-5.1)
[2022-06-14] MEDS: LITHIUM CARBONATE 300 MG CAPSULE PO SCH (08:48)
[2022-06-14] MEDS: LORAZEPAM 0.5 MG TABLET PO PRN (08:55)
--- NOTE | 2022-06-14 10:00 | NUR ---
PATIENT SEEN BY DR NEMO BRADY WITH ORDER TO DISCHARGE PATIENT TO [facility] TODAY AND NOTED.
[2022-06-14] MEDS ORDERED: LITH300C4 PO (10:36)
[2022-06-14] MEDS ORDERED: DORZ10DR11 EACHEYE (10:36)
[2022-06-14] MEDS ORDERED: OLAN5TAB70 PO (10:36)
[2022-06-14 11:57] VITALS: BP 110/58
--- NOTE | 2022-06-14 12:45 | NUR ---
CALLED SARAY DUFF AND REPORT GIVEN TO SHARAD FOR CONTINUING CARE.
--- NOTE | 2022-06-14 15:05 | NUR ---
PATIENT DISCHARGED PICKED UP BY [facility] IN SATISFACTORY CONDITION WITH DISCHARGE INSTRUCTIONS AND ALL HER PERSONAL BELONGINGS PATIENTS MOTHER HERE AT HER BEDSIDE.
[2022-06-15 12:07] LABS: *ANTI-SCLERODERMA-70 AB <0.2 AI (0.0-0.9); *SJOGREN'S ANTI-SS-A <0.2 AI (0.0-0.9); *SJOGREN'S ANTI-SS-B <0.2 AI (0.0-0.9); *SMITH ANTIBODIES <0.2 AI (0.0-0.9); ANTI-DNA(DS) AB, QN <1 IU/mL (0-9)
[2022-06-16 13:06] LABS: CRYPTOCOCCUS AB, SERUM Negative (Negative)
--- NOTE | 2022-06-18 14:23 | NUR ---
Clinical SW Note: SW returned pt's outpatient psychiatrist, Dr. Katz's call and provided pt's continuation of care location at [address] [address] ([phone]) per request in a voicemail. LUIS also informed Dr. Katz in the voicemail that pt was discharged from the [facility] on 06/11/22.
== END 2022-06-14 15:05 | DRG 103 ==
LOC: TELE3 20:41
PROVIDERS: ADMIT Student in an Organized Health Care Education/Training Program; ATTEND Student in an Organized Health Care Education/Training Program
PROC: 009U3ZX Drainage of Spinal Canal, Percutaneous Approach, Diagnostic (ICD-10-PCS; principal; 2022-06-13)
DX: I67.7 Cerebral arteritis, not elsewhere classified (principal); R45.851 Suicidal ideations; F13.20 Sedative, hypnotic or anxiolytic dependence, uncomplicated; R62.7 Adult failure to thrive; Z68.20 Body mass index [BMI] 20.0-20.9, adult; D69.6 Thrombocytopenia, unspecified; F25.0 Schizoaffective disorder, bipolar type; H40.9 Unspecified glaucoma; K58.9 Irritable bowel syndrome, unspecified; Z91.51 Personal history of suicidal behavior; F41.9 Anxiety disorder, unspecified; Z87.09 Personal history of other diseases of the respiratory system; I67.1 Cerebral aneurysm, nonruptured; G43.909 Migraine, unspecified, not intractable, without status migrainosus; Z79.899 Other long term (current) drug therapy; J45.909 Unspecified asthma, uncomplicated; J32.2 Chronic ethmoidal sinusitis; Z85.820 Personal history of malignant melanoma of skin; F43.10 Post-traumatic stress disorder, unspecified; R27.9 Unspecified lack of coordination; T45.0X2D Poisoning by antiallergic and antiemetic drugs, intentional self-harm, subsequent encounter; F10.10 Alcohol abuse, uncomplicated; I34.1 Nonrheumatic mitral (valve) prolapse; Z86.010 Personal history of colon polyps
CPT/HCPCS: 36415; 83735; 84100; 84157; 85025; 85651; 86038; 86788; 86789; 86803; 87328; 87536; 87806; 89051; 93307; 93880; A4663; G0378; J1650